=== PATIENT | male | born 1980 | race Caucasian/White ===

== ENCOUNTER 2016-12-18 14:59 | Inpatient (IN) | payer OTHER ==
--- NOTE | ~2016-12-18 | PN ---
Unit #: [id number] #: [id number] Patient: JULIANNE PORTER [id number] [facility] [address] [place] [address] [id number] I MR#: [id number] NAME: JULIANNE PORTER ROOM: [facility] Age: 36 Sex: M Admission Date: 12/18/2016 : 1980 Attending Physician: Tom Espino M.D. Admitting Physician: Tom Espino M.D. Primary Care Physician: Generic Doctor Not In System [facility] PROGRESS NOTES DATE 12/23/2016 DISCUSSION Julianne Porter is a 36-year-old male. The patient interviewed, chart reviewed, and obtained information from the nursing staff. The patient is maintaining safe behavior, still somewhat guarded, paranoid, but denied any thoughts of harming self or others, able to participate in program. REVIEW OF SYSTEMS Complete review of systems unremarkable. MENTAL STATUS EXAMINATION General appearance: Patient dressed casually. Attention span and concentration, fair. Oriented to place and person. Mood and affect, sad and depressed. Speech, monotone. Thought process, concrete, isolative, denied any suicidal or homicidal ideation but somewhat guarded. Recent and remote memory, poor. Insight and judgment, poor. DIAGNOSIS Bipolar mood disorder, NOS. ASSESSMENT/PLAN Advised to continue with the current medication and therapeutic protocol, and if needed consider further adjustment of medication. Dictated by... Vicky Sanchez/demarco TD: 12/24/2016 13:11 JOB #: [id number] Unit #: [id number] #: [id number] Patient: JULIANNE PORTER PROGRESS NOTES Page 1 of 1 X Tom Espino MD X PROGRESS NOTE
--- NOTE | ~2016-12-18 | CO ---
Unit #: [id number] #: [id number] Patient: JULIANNE ZHOU [id number] [place] [address] [id number] MR#: [id number] NAME: JULIANNE ZHOU ROOM: [facility] Age: 36 Sex: M Admission Date: 12/18/2016 : 1980 Attending Physician: Tom Espino M.D. Primary Care Physician: Generic Doctor Not In System Requesting Physician: Tom Espino M.D. Consultation Date: 12/22/2016 CONSULTATION REPORT HISTORY OF PRESENT ILLNESS Julianne reports a history of pain with urination since an appendectomy in September of 2016. He has been taking Flagyl, Cipro and amoxicillin for an abscess tooth that was prescribed by Dr. Roy (1) . He also has been seeing Dr. Browning, who is his surgeon who plans to do a scope to examine his urethra. He is currently taking Pyridium which has been turning his urine orange and is concerned that he might have a tumor that is causing his orange colored urine. No abdominal pain. No CVA tenderness or flank pain. No other complaints. PHYSICAL EXAM CARDIAC: Regular rate and rhythm. No murmur, gallop or rub. RESPIRATORY: Respiratory clear to auscultation bilaterally. ABDOMEN: Bowel sounds positive in all quadrants. No abdominal tenderness or palpation. No CVA tenderness or flank pain. DIAGNOSTICS UA shows trace leukocytes and one plus urobilinogen. ASSESSMENT AND PLAN Dysuria. His (2) but seem to be ongoing. He is seeing a surgeon regarding this. His UA was normal. He is already taking Cipro and amoxicillin for abscess tooth. We discussed the fact that Pyridium causes urine to be orange and that this is normal. He does report that it is helping slightly with the painful urination. We will obtain a urine culture and sensitivities to rule out infection and patient will follow up with surgeon. Dictated by... Zoey Shaikh A.P.R.N. for Zack TD: 12/23/2016 21:43 JOB #: [id number] Unit #: [id number] #: [id number] Patient: JULIANNE ZHOU CONSULTATION REPORT Page 1 of 1 X ZOEY AYALA APRN CONSULTATION REPORT
--- NOTE | ~2016-12-18 | DS ---
Unit #: [id number] #: [id number] Patient: JULIANNE ZHOU [id number] [place] [address] [id number] I MR#: [id number] NAME: JULIANNE ZHOU ROOM: [facility] Age: 36 Sex: M Admission Date: 12/18/2016 : 1980 Discharge Date: 12/24/2016 Attending Physician: Tom Espino M.D. Primary Care Physician: Generic Doctor Not In System DISCHARGE SUMMARY REASON FOR ADMISSION Suicidal ideation and hallucination. DIAGNOSTIC STUDIES LABORATORY RESULTS: Unremarkable except total protein 5.8. HOSPITAL COURSE The patient was admitted to inpatient unit on 12/18/2016 and discharged on 12/24/2016. The patient was treated on the inpatient unit with group therapy, individual therapy, and medication management. The patient responded well with the above modalities of treatment and following medication. DISCHARGE MEDICATIONS Colace 100 mg b.i.d. for constipation, Cogentin 1 mg b.i.d. for EPS symptom, ciprofloxacin 500 mg b.i.d. for 5 days for UTI, Protonix 20 mg daily for GERD, Vistaril 25 mg t.i.d. for anxiety, Neurontin 600 mg at bedtime for anxiety, Flagyl 500 mg t.i.d. for 5 days for infection, Prozac 30 mg daily for depression, Zyprexa 10 mg daily for psychosis, trazodone 50 mg at bedtime for sleep. DISCHARGE DIAGNOSES Psychiatric: Bipolar mood disorder, not otherwise specified, F31.89; rule out schizoaffective disorder, F25.9. Secondary diagnosis: Deferred. Medical diagnosis: Please refer to H and P. Stressors: Psychosocial stressor. DISCHARGE INSTRUCTIONS The patient to follow up in outpatient clinic as per rn social services. CONDITION ON DISCHARGE The patient was pleasant and cooperative. Denied any psychotic symptom or any suicidal ideation. PROGNOSIS Guarded. DIET AND ACTIVITY As tolerated. Unit #: [id number] #: [id number] Patient: JULIANNE ZHOU Dictated by... Vicky Sanchez/yehuda TD: 12/24/2016 18:21 JOB #: [id number] DISCHARGE SUMMARY Page 1 of 1 X Tom Espino MD DISCHARGE SUMMARY
--- NOTE | ~2016-12-18 | PA ---
Unit #: [id number] #: [id number] Patient: JULIANNE ZHOU [id number] [place] [address] [id number] MR#: [id number] NAME: JULIANNE ZHOU ROOM: [facility] Age: 36 Sex: M Admission Date: 12/18/2016 : 1980 Date of Assessment: 12/19/2016 Attending Physician: Tom Espino M.D. Admitting Physician: Tom Espino M.D. Primary Care Physician: Generic Doctor Not In System PSYCHIATRIC ASSESSMENT INFORMANTS The patient reliability, fair informant; chart reliability, good. CHIEF COMPLAINT Depression, hallucinations, suicidal ideation. HISTORY OF PRESENT ILLNESS Mr. Rincon is a 36-year-old male, presented with increase in depression. The patient was transported by police from primary care physician's office. The patient was compliant, cooperative during interview. The patient was having pressured speech and thoughts of suicide, and the patient had a plan to cut his wrist. The patient reported "I'm not lying to you." The patient did admit cutting his wrist with a estimator paperboard boxes, appears superficial. The patient reports suicidal ideation, frequently intense, responding to internal stimuli, during the assessment guarded and paranoid. The patient acknowledged hallucination was auditory and visual. Denied any homicidal ideation. Denied use of any drugs or alcohol. The patient reported decreased sleep, decreased energy, increased appetite, feeling of hopelessness and worthlessness. The patient reports that he is followed by Dr. Forrest at [facility]. The patient needing inpatient admission at this time for psychiatric stabilization. PAST PSYCHIATRIC HISTORY Remarkable for history of outpatient treatment through [facility] with Dr. Forrest since 2004 for bipolar disorder, inpatient at [facility] in 2009 for bipolar disorder. FAMILY HISTORY AND SOCIAL HISTORY The patient has a good support from mother, father, and aunt, currently unemployed. No known history of any abuse. Family history is remarkable for history of bipolar disorder in father and sister. No history of any substance abuse. MEDICAL HISTORY Remarkable for history of chronic medical condition. The patient diagnosed with hypertension, GERD, asthma, sleep apnea, hernia, Crohn disease. Musculoskeletal; muscle strength and tone, no atrophy or abnormal movement. Gait normal. MEDICATION HISTORY The patient is currently on Symbyax 3/25 at bedtime, Prevacid, gabapentin, Dulera inhaler, Ventolin, Flonase, Cogentin. Unit #: [id number] #: [id number] Patient: JULIANNE ZHOU ALLERGIES No known drug allergies. SUBSTANCE ABUSE HISTORY Remarkable for alcohol use socially, age of onset 14. REVIEW OF SYSTEMS HEENT: Eyes, clear. Ears, nose, mouth, and throat; clear. CARDIOVASCULAR: Unremarkable. RESPIRATORY: Unremarkable. GI: Unremarkable. : Unremarkable. SKIN: Unremarkable. LYMPH NODE: Unremarkable. NEUROLOGIC: Unremarkable. ENDOCRINE: Unremarkable. HEMATOLOGIC: Unremarkable. ALLERGIC/IMMUNOLOGIC: Unremarkable. MUSCULOSKELETAL: Muscle strength and tone, no atrophy or abnormal movement. Gait normal. MENTAL STATUS EXAMINATION CONSTITUTIONAL: Measurement of vital signs; temperature 98.4, pulse 66, respiratory rate 16, blood pressure 131/82. GENERAL APPEARANCE: The patient dressed casually. The patient did not show any facial deformity. MUSCULOSKELETAL: Please see above. PSYCHIATRIC EXAMINATION Description of speech, monotone. Description of thought process, guarded. Description of abnormal psychotic thinking; the patient reported suicidal ideation, hallucination, guarded, paranoid. Denied any use of drugs. Mood lability, anger problem. Description of the patient's judgment, concerning everyday activity, poor. Social situation, poor. Concerning psychiatric condition, poor. Complete mental status examination; oriented in time, place, and person. Recent and remote memory, fair. Attention span and concentration, fair. Language, able to name object and repeat phrases. Fund of knowledge, aware of current event and passive vocabulary intact. Mood and affect, sad and dysphoric. Insight and judgment, fair to poor. ASSETS AND LIABILITIES Assets; the patient is articulate and able to take care of his ADL. Liability, history of depression, hallucination. ADMITTING DIAGNOSES Psychiatric: Bipolar mood disorder, not otherwise specified, F31.89; rule out schizoaffective disorder, bipolar type, F25.9. Secondary diagnosis: Deferred. Medical diagnosis: Please refer to H and P. Stressors: Psychosocial stressors. PSYCHIATRIC PLAN 1. Advised to admit the patient on the inpatient unit. Provide safe, Unit #: [id number] #: [id number] Patient: JULIANNE ZHOU supportive, and structured environment. 2. Ordered labs; CBC, CMP, UA, and UDS. 3. Advised to resume home medication with a plan to increase Zyprexa and Prozac. The patient to attend all the programing group therapy, individual therapy, medication management. TREATMENT GOAL To attain euthymic mood, gain insight into his problem, and learn coping skills. DISCHARGE PLAN Plan to stabilize the patient and consider followup in outpatient program. ESTIMATED LENGTH OF STAY 5 to 7 days. Dictated by... Tom Espino M.D. BULL/yehuda TD: 12/19/2016 22:49 JOB #: [id number] PSYCHIATRIC ASSESSMENT Page 1 of 1 X Tom Espino MD PSYCHIATRIC ASSESSMENT
--- NOTE | ~2016-12-18 | HP ---
Unit #: [id number] #: [id number] Patient: JULIANNE ZHOU [id number] [place] [address] [id number] I MR#: [id number] NAME: JULIANNE ZHOU ROOM: [facility] Age: 36 Sex: M Admission Date: 12/18/2016 : 1980 Attending Physician: Tom Espino M.D. Admitting Physician: Tom Espino M.D. Primary Care Physician: Generic Doctor Not In System HISTORY AND PHYSICAL HISTORY OF PRESENT ILLNESS Julianne is a 36 year old admitted to [address] [place] [address] because of his bipolar disorder. He reports increased anxiety over the past few weeks. PAST MEDICAL HISTORY 1. Asthma. 2. History of colitis. PAST SURGICAL HISTORY 1. Appendectomy. 2. Cholecystectomy. 3. Umbilical hernia repair. 4. Ventral hernia repair. ALLERGIES No known drug allergies. SOCIAL HISTORY He does not smoke. Drinks alcohol socially. Denies illicit drug use. FAMILY HISTORY Medically noncontributory. REVIEW OF SYSTEMS CONSTITUTIONAL: No fever or chills. HEENT: Denies any sore throat, ear pain or runny nose. CARDIOVASCULAR: Denies chest pain, irregular heart rhythm or palpitations. CHEST: Denies shortness of breath or cough. No hemoptysis. GASTROINTESTINAL: Denies nausea, vomiting, diarrhea or chronic constipation. ENDOCRINE: Denies history of increased thirst or urination. No recent significant weight loss or gain. GENITOURINARY: Denies dysuria, frequency, or hematuria. SKIN: Denies any rashes. HEMATOLOGIC: Denies history of increased bleeding or bruising. MUSCULOSKELETAL: Denies any hot, swollen joints. No generalized muscle pain. NEUROLOGIC: Denies problems with vision or speech. No frequent, severe headaches. No numbness, tingling or weakness in any extremities. Denies loss of bladder or bowel control. CURRENT MEDICATIONS 1. Prozac 10 mg q.h.s. Unit #: [id number] #: [id number] Patient: JULIANNE ZHOU 2. Desyrel 50 mg q.h.s. 3. Zyprexa 10 mg q.h.s. 4. Prozac 20 mg q.h.s. 5. Proventil inhaler p.r.n. 6. Vistaril p.r.n. 7. Milk of Magnesia p.r.n. 8. Maalox p.r.n. 9. Tylenol p.r.n. 10. Neurontin 600 mg q.h.s. 11. Cogentin 1 mg b.i.d. 12. Colace 100 mg b.i.d. 13. Flagyl 500 mg t.i.d. 14. Cipro 500 mg b.i.d. 15. Amoxicillin 500 mg t.i.d. PHYSICAL EXAMINATION GENERAL: Alert, well-nourished, in no apparent distress. VITAL SIGNS: Blood pressure 130/82, heart rate 66, respirations 16, temperature 98.6. SKIN: Warm and dry without rash or lesion. HEENT: Normocephalic. TMs not viewed. Oral and nasal passages clear. Conjunctivae clear. PERRLA. EOMs intact. NECK: Supple without lymphadenopathy or thyromegaly. HEART: Regular rate and rhythm without murmur. LUNGS: Clear. ABDOMEN: Soft, nontender. : Not done. EXTREMITIES: No evidence of cyanosis, clubbing or edema. Moves all without focal deficit. NEUROLOGICAL: Moves all without focal deficit. 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 He has a fine tremor in his left hand. Gait is normal. IMPRESSION Psychiatric admission. RECOMMENDATIONS PSYCHIATRIC: Per psychiatrist. MEDICAL: See no contraindications to participate in facility's activities. MEDICAL PROGNOSIS Good. MEDICAL CONDITION Stable. Dictated by... Shani Menchaca P.A.-C. for Vicky Boogie/devi TD: 12/19/2016 20:28 JOB #: [id number] Unit #: [id number] #: [id number] Patient: JULIANNE ZHOU HISTORY AND PHYSICAL Page 1 of 1 X Shani Menchaca HISTORY AND PHYSICAL
--- NOTE | ~2016-12-18 | PN ---
Unit #: [id number] #: [id number] Patient: JULIANNE PORTER [id number] [facility] [address] [place] [address] [id number] I MR#: [id number] NAME: JULIANNE PORTER ROOM: [facility] Age: 36 Sex: M Admission Date: 12/18/2016 : 1980 Attending Physician: Tom Espino M.D. Admitting Physician: Tom Espino M.D. Primary Care Physician: Generic Doctor Not In System [facility] PROGRESS NOTES DATE OF NOTE 01/08/2017 CPT CODE 31118 WEIGHT 197.8 pounds. HEIGHT 5 feet 9 inches. Blood pressure 137/73, pulse 76. DISCUSSION Mr. oPrter presents as a 36-year-old white male who was last seen in my office November 20, 2016. That note was reviewed as well as his medications, and apparently he has been on an antibiotic as well as Pyridium for urinary tract infection. The patient was [facility] after his great aunt and a friend unexpectedly. He was [facility] to [facility] directly from his primary care doctor's office by the police. He claims he was very depressed, still little depressed, but is feeling somewhat better. He absolutely denies being suicidal or homicidal. He is quite pleased that a friend of his has agreed to hiring part-time. He is in no regular therapy, and we did talk about getting into some therapy to deal with the losses. He is walking regularly. His appetite he claims is nutritional and routine and is averaging [id number] bottles of water a day. Sleep is 6-8 hours a night and is restful. He has been out of Cogentin 4 to 5 days and feels though that that had helped him emotionally but had really not stopped the tremors in his left arm. I did talk with him about my concerns about him being somewhat scattered and rambling, but he was easy to redirect. I did speak with him about the closing of the office and the upcoming letter that we will be sending out about referral resources. He was appreciative of the care that he has received and was hoping he will follow up with me. REVIEW OF SYSTEMS Patient's weight is up. He has recently had a urinary tract infection, and he claims he has had some fluid in his scrotum. Other major organ systems such as cardiac and pulmonary seem stable. The fluid in his scrotum has been evaluated. MEDICATIONS 1. Cogentin 1 mg b.i.d. Unit #: [id number] #: [id number] Patient: JULIANNE PORTER 2. Gabapentin 300 mg a day. 3. Symbyax 3/25, 1 tablet a day. Caffeine about 40 ounces a day. MENTAL STATUS EXAMINATION The patient was able to ambulate on his own to my office. His hygiene is good. He is alert and cooperative. Speech is normal rate and rhythm. Thought processes are scattered. He is somewhat tangential, seems to be rambling, but he was easily redirected and not distressed by it. No loose associations. No auditory or visual hallucinations. No suicidal or homicidal ideation. There continues to be a tremor in his left arm. Insight is fair. He is well-oriented in that he made it to the appointment at the appropriate date and time. Memory is good. Concentration is fine during the interview. Mood overall is euthymic, good eye contact. He is quite pleasant. He was able to identify the office and the chair. His vocabulary is appropriate for his level of education. His strengths are his supportive mother, his claimed compliance on medicine, his ability to ask for help, his follow up with this appointment. Limitations are recent psychiatric hospitalization, of a friend and a relative, increase in weight, possible change in psychiatric care. DIAGNOSES AXIS I: F31.81 AXIS II: Deferred. AXIS III: See review of systems. AXIS IV: Medical issues. Recent psychiatric admission. Change in psychiatric care. AXIS V: 55-60 TREATMENT PLAN 1. Call on an as needed basis. 2. Sign a Release of Information. 3. Pursue therapy through his insurance. 4. Nutritional and routine diet. 5. Routine sleep, and he is aware of sleep hygiene techniques. 6. Regular exercise. 7. Structure to his day. 8. Cogentin 1 mg b.i.d. #60 with 6 refills. 9. Gabapentin 300 mg a day #30 with 6 refills. 10. Symbyax 3/25 1 p.o. daily #30 with 6 refills. Patient is aware of the risks, benefits, and side effects of the medication especially in regard to tardive dyskinesia, neuroleptic malignant syndrome, extrapyramidal symptoms, and metabolic syndrome, and he does agree to stay on them as prescribed. Dictated by... Unit #: [id number] #: [id number] Patient: JULIANNE PORTER M.D. KSH/bzg TD: 01/09/2017 11:35 JOB #: [id number] [facility] PROGRESS NOTES Page 1 of 1 X Lia Forrest MD X PROGRESS NOTE
--- NOTE | ~2016-12-18 | PN ---
Unit #: [id number] #: [id number] Patient: JULIANNE PORTER [id number] [facility] [address] [place] [address] [id number] MR#: [id number] NAME: JULIANNE PORTER ROOM: [facility] Age: 36 Sex: M Admission Date: 12/18/2016 : 1980 Attending Physician: Tom Espino M.D. Admitting Physician: Tom Espino M.D. Primary Care Physician: Generic Doctor Not In System [facility] PROGRESS NOTES DATE OF SERVICE 12/19/2016 DISCUSSION Julianne Porter is a 36-year-old male seen on 12/19/2016. Patient interviewed, chart reviewed, I obtained information from nursing staff. Patient continues to be isolative, flat affect. Patient still having psychotic symptoms, flat affect, guarded, paranoid but denied any thoughts of harming others, cooperative. COMPLETE REVIEW OF SYSTEMS Unremarkable. MENTAL STATUS EXAMINATION GENERAL APPEARANCE: Patient dressed casually. ATTENTION SPAN AND CONCENTRATION: Fair. Oriented in place and person. MOOD AND AFFECT: Sad, depressed. SPEECH: Monotone. THOUGHT PROCESS: [place]. Patient denied any thoughts of harming others, but having suicidal ideation, guarded, paranoid, attending to internal stimuli. RECENT AND REMOTE MEMORY: Poor. INSIGHT AND JUDGMENT: Poor. DIAGNOSIS Bipolar mood disorder with psychotic features ASSESSMENT/PLAN Advised to change Prozac to 30 mg daily and Zyprexa 10 mg at bedtime. If needed, consider further adjustment in medication. Continue with current medications and we will continue to follow. Continue with all the precautions for patient safety. Dictated by... Tom Espino M.D. BULL/edwardo TD: 12/19/2016 20:13 Unit #: [id number] #: [id number] Patient: JULIANNE PORTER JOB #: [id number] [facility] PROGRESS NOTES Page 1 of 1 X Tom Espino MD PROGRESS NOTE
--- NOTE | ~2016-12-18 | PN ---
Unit #: [id number] #: [id number] Patient: JULIANNE ZHOU [id number] [facility] [address] [place] [address] [id number] I MR#: [id number] NAME: JULIANNE ZHOU ROOM: [facility] Age: 36 Sex: M Admission Date: 12/18/2016 : 1980 Attending Physician: Tom Espino M.D. Admitting Physician: Tom Espino M.D. Primary Care Physician: Generic Doctor Not In System [facility] PROGRESS NOTES DATE OF SERVICE: 12/22/2016 DISCUSSION Julianne is a 36-year-old male, seen on 12/22/2016. The patient interviewed, chart reviewed, and obtained information from nursing staff. The patient is withdrawn, isolative, guarded, paranoid, but able to contract for safety. The patient denied any side effects from medication. REVIEW OF SYSTEMS A complete review of systems is unremarkable. MENTAL STATUS EXAMINATION General appearance; the patient dressed casually. Attention span and concentration, fair. Oriented in place and person. Mood and affect; sad, dysphoric, and flat. Speech, monotone. Thought process, concrete. The patient denied any thoughts of harming self or others, but guarded. Recent and remote memory, poor. Insight and judgment, poor. DIAGNOSIS Bipolar mood disorder, not otherwise specified. ASSESSMENT AND PLAN Advised to continue with current medication and therapeutic protocol. If needed, consider further adjustment of medication. Dictated by... Vicky Sanchez/yehuda TD: 12/23/2016 17:02 JOB #: [id number] Unit #: [id number] #: [id number] Patient: JULIANNE ZHOU [facility] PROGRESS NOTES Page 1 of 1 X Tom Espino MD PROGRESS NOTE
--- NOTE | ~2016-12-18 | PN ---
Unit #: [id number] #: [id number] Patient: JULIANNE PORTER [id number] [facility] [address] [place] [address] [id number] I MR#: [id number] NAME: JULIANNE PORTER ROOM: [facility] Age: 36 Sex: M Admission Date: 12/18/2016 : 1980 Attending Physician: Tom Espino M.D. Admitting Physician: Tom Espino M.D. Primary Care Physician: Generic Doctor Not In System [facility] PROGRESS NOTES DATE 12/21/2016 DISCUSSION Julianne Porter is a 36-year-old male seen on 12/21/2016. Patient interviewed, chart reviewed, obtained information from nursing staff. The patient reported decrease in hallucination, paranoia, suicidal ideation. Making progress. Isolative, guarded, flat affect. Complete review of systems unremarkable. MENTAL STATUS EXAMINATION General appearance: Patient hygiene and grooming fair. Attention span and concentration fair. Oriented in time, place and person. Mood and affect sad/depressed. Speech monotone. Thought processes concrete. Patient denied any thoughts of harming self or others but passive suicidal ideation, guarded, paranoid, but denied any hallucinations. Recent and remote memory poor. Insight and judgment poor. DIAGNOSIS Bipolar mood disorder, NOS ASSESSMENT/PLAN Advised to continue with current medication and therapeutic protocol. If needed, consider further adjustment of medication. Dictated by... Vicky Sanchez/david TD: 12/23/2016 09:38 JOB #: [id number] Unit #: [id number] #: [id number] Patient: JULIANNE PORTER PROGRESS NOTES Page 1 of 1 X Tom Espino MD PROGRESS NOTE
--- NOTE | ~2016-12-18 | PN ---
Unit #: [id number] #: [id number] Patient: JULIANNE PORTER [id number] [facility] [address] [place] [address] [id number] MR#: [id number] NAME: JULIANNE PORTER ROOM: [facility] Age: 36 Sex: M Admission Date: 12/18/2016 : 1980 Attending Physician: Tom Espino M.D. Admitting Physician: Tom Espino M.D. Primary Care Physician: Generic Doctor Not In System [facility] PROGRESS NOTES DATE OF SERVICE 12/20/2016 DISCUSSION Julianne Porter is a 36-year-old male seen on 12/20/2016. Patient interviewed, chart reviewed, I obtained information from nursing staff. Patient isolative, guarded, flat affect. Patient reported medication is helping him and decreasing in depression and anxiety, denied any hallucination. Patient denied any thoughts of harming self or others, making progress. COMPLETE REVIEW OF SYSTEMS Unremarkable. MENTAL STATUS EXAMINATION GENERAL APPEARANCE: Patient dressed casually. ATTENTION SPAN AND CONCENTRATION: Fair. Oriented in place and person. MOOD AND AFFECT: Sad, dysphoric. SPEECH: Monotone. THOUGHT PROCESS: [place]. Patient denied any thoughts of harming self or others. RECENT AND REMOTE MEMORY: Poor. INSIGHT AND JUDGMENT: Poor. DIAGNOSIS Bipolar mood disorder, NOS ASSESSMENT/PLAN Advised to continue with current medication and therapeutic protocol. If needed, consider further adjustment in medication. Dictated by... Vicky Sanchez/edwardo TD: 12/20/2016 22:04 JOB #: [id number] Unit #: [id number] #: [id number] Patient: JULIANNE PORTER [facility] PROGRESS NOTES Page 1 of 1 X Tom Espino MD PROGRESS NOTE
[2016-12-19 12:44] LABS: BASOPHIL% 0.4 % (0-2.5); EOSINOPHIL# 0.1 X10e3 (0-0.7); EOSINOPHIL% 1.4 % (0.0-7.0); HEMATOCRIT 37.8 % (38.0-50.0); HEMOGLOBIN 12.3 gm/dL (13.0-16.0); LYMPHOCYTE# 1.6 X10e3 (1.0-3.5); LYMPHOCYTE% 17.6 % (17.0-45.0); MEAN CELL VOLUME 86.8 FL (83-96); MEAN CORPUSCULAR HEMOGLOBIN 28.2 PG (28-34); MEAN CORPUSCULAR HGB CONC 32.5 g/dL (30-36); MONOCYTE# 0.5 X10e3 (0-1.0); MONOCYTE% 5.7 % (3.0-12.0); NEUTROPHIL# 6.7 X10e3 (1.5-7.1); NEUTROPHIL% 74.9 % (40-75); PLATELET COUNT 291 X10e3 (140-420); RED BLOOD COUNT 4.36 X10e (3.90-5.60); RED CELL DISTRIBUTION WIDTH 14.8 % (11.0-15.5)
[2016-12-19 12:48] LABS: DIFF IND NO
[2016-12-19 13:22] LABS: THYROID STIMULATING HORMONE 0.92 uIU/ml (0.34-5.60)
[2016-12-19 13:29] LABS: FREE THYROXIN (T4) 1.07 ng/dL (0.58-1.64)
[2016-12-19 14:18] LABS: ALBUMIN SERUM 3.4 g/dL (3.5-5.0); BILIRUBIN,TOTAL 0.8 mg/dL (0.2-2.0); BUN/CREATININE RATIO 11.11; CALCIUM SERUM 8.9 mg/dL (8.4-10.2); CREATININE SERUM 0.9 mg/dL (0.6-1.4); POTASSIUM 4.1 mmol/L (3.5-5.1); PROTEIN TOTAL SERUM 5.8 g/dL (6.0-8.3)
[2016-12-22 12:14] LABS: URINE APPEARANCE CLEAR; URINE BILIRUBIN NEG (NEG); URINE BLOOD NEG (NEG); URINE COLOR YELLOW; URINE GLUCOSE NEG (NEG); URINE KETONE NEG (NEG); URINE LEUKOCYTE ESTERASE TRACE (NEG); URINE NITRATE NEG (NEG); URINE PH 6.5 (5-8); URINE PROTEIN NEG (NEG); URINE SPECIFIC GRAVITY 1.022 (1.003-1.035)
[2016-12-22 12:16] LABS: URBCS1 AUWI 0-2 /[HPF] (0-2); URINE BACTERIA AUWI NEG (NEGATIVE); URINE SQUAMOUS EPITHELIAL CELL NONE SEEN /[HPF]; UWBCS1 AUWI 0-2 (0-5)
[2016-12-22 13:06] LABS: AMPHETAMINE NEG (NEG); BARBITURATES NEG (NEG); BENZODIAZEPINES NEG (NEG); COCAINE NEG (NEG); OPIATES NEG (NEG); TRICYCLIC ANTIDEPRESSANTS NEG (NEG); U METHADONE NEG (NEG)
== END 2016-12-24 12:00 | disposition home or self-care (01) | DRG 885 ==
LOC: P1S 19:48
PROVIDERS: Psychiatry & Neurology Psychiatry
DX: F31.89 Other bipolar disorder (principal); F25.9 Schizoaffective disorder, unspecified; J45.909 Unspecified asthma, uncomplicated; F41.9 Anxiety disorder, unspecified; R30.0 Dysuria
CPT/HCPCS: 80053; 80307; 81003; 84439; 84443; 85025

== ENCOUNTER 2017-01-12 00:57 | Emergency (ER) | payer OTHER ==
[2017-01-12 03:25] LABS: BASOPHIL# 0.1 X10e3 (0-0.3); BASOPHIL% 0.5 % (0-2.5); EOSINOPHIL# 0.1 X10e3 (0-0.7); EOSINOPHIL% 1.4 % (0.0-7.0); HEMATOCRIT 39.1 % (38.0-50.0); HEMOGLOBIN 12.6 gm/dL (13.0-16.0); LYMPHOCYTE# 1.9 X10e3 (1.0-3.5); LYMPHOCYTE% 18.8 % (17.0-45.0); MEAN CELL VOLUME 87.3 FL (83-96); MEAN CORPUSCULAR HGB CONC 32.1 g/dL (30-36); MEAN PLATELET VOLUME 6.8 FL (6.5-11.5); MONOCYTE# 0.9 X10e3 (0-1.0); MONOCYTE% 8.5 % (3.0-12.0); NEUTROPHIL# 7.2 X10e3 (1.5-7.1); NEUTROPHIL% 70.8 % (40-75); PLATELET COUNT 265 X10e3 (140-420); RED BLOOD COUNT 4.48 X10e (3.90-5.60); WHITE BLOOD COUNT 10.2 X10e3 (4.0-10.5)
[2017-01-12 03:27] LABS: DIFF IND NO
[2017-01-12 03:43] LABS: ALBUMIN SERUM 4.1 g/dL (3.5-5.0); ALKALINE PHOSPHATASE 55 U/L (32-92); ALT (SGPT) 26 U/L (10-40); AST (SGOT) 21 U/L (10-42); BILIRUBIN,TOTAL 0.8 mg/dL (0.2-2.0); BLOOD UREA NITROGEN 12 mg/dL (9-23); BUN/CREATININE RATIO 13.33; CALCIUM SERUM 8.6 mg/dL (8.4-10.2); CARBON DIOXIDE 26 mmol/L (22-31); CHLORIDE 105 mmol/L (100-111); CREATININE SERUM 0.9 mg/dL (0.6-1.4); GLUCOSE FASTING 93 mg/dL (70-110); LIPASE 23 U/L (22-51); POTASSIUM 3.4 mmol/L (3.5-5.1); PROTEIN TOTAL SERUM 6.7 g/dL (6.0-8.3); SODIUM 137 mmol/L (135-145)
[2017-01-12 03:55] LABS: BILIRUBIN, DIRECT <0.1 mg/dL (0.0-0.2); BILIRUBIN,INDIRECT 0.7 mg/dL (0.0-0.9)
[2017-01-12 05:46] LABS: URINE SOURCE CLEAN CATCH
[2017-01-12 05:51] LABS: URINE APPEARANCE CLEAR; URINE BILIRUBIN NEG (NEG); URINE BLOOD NEG (NEG); URINE COLOR YELLOW; URINE GLUCOSE NEG (NEG); URINE KETONE NEG (NEG); URINE LEUKOCYTE ESTERASE NEG (NEG); URINE NITRATE NEG (NEG); URINE PROTEIN NEG (NEG); URINE SPECIFIC GRAVITY 1.015 (1.003-1.035); URINE UROBILINOGEN 0.2 MG/DL (NEG)
[2017-01-12 05:57] LABS: CULTURE INDICATED? NO
== END 2017-01-12 06:10 | disposition home or self-care (01) ==
LOC: CED 00:57
DX: R30.0 Dysuria (principal); K21.9 Gastro-esophageal reflux disease without esophagitis; Z90.49 Acquired absence of other specified parts of digestive tract
CPT/HCPCS: 80048; 80076; 81003; 83690; 85025; 99283